=== PATIENT | female | born 1985 | race Caucasian/White ===

== ENCOUNTER 2023-02-16 15:54 | Outpatient (AMB) | payer OTHER, SELFPAY ==
--- NOTE | 2023-02-16 16:06 | MHC.OFFWIV ---
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 Patient reports the symptoms started approximately 4-5 days ago. 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 She has tested negative for COVID several times. She has a history of strep and bronchitis but states this does not feel like either. She denies current sore throat, chest pain, nausea, vomiting, diarrhea or fevers. Patient states that she stayed home sick from work today and slept the entire day. [facility] Social History Patient Tobacco Use Status: Never used Tobacco Review of Systems Const All systems reviewed & are unremarkable except as noted in HPI and below Physical Exam Vital Signs: Last Vital Signs Temp 97.5 F 02/16/23 16:12 Pulse 61 02/16/23 16:12 BP 112/70 02/16/23 16:12 Pulse Ox 98 02/16/23 16:12 Oxygen Delivery Method Room Air 02/16/23 16:12 BMI result Body Mass Index 28.9 General: awake, alert, oriented. Answers questions appropriately. Fully engaged in examination. Skin: warm, dry, intact HEENT: Normocephalic. Hearing intact. TMs intact bilaterally. posterior pharynx without erythema or exudate. no lymphadenopathy noted. Cardiac: External chest normal in appearance. Respiratory: No cough, audible wheezing or stridor. LS clear to auscultation bilaterally Abdomen: without gross distension. MS: No obvious swelling or deformities. Neurological: Oriented to person, place, time and situation. Thought process intact. Psychiatric: Appropriate mood and affect. Good judgment and insight. Assessment & Plan Assessment & Plan (1) URI (upper respiratory infection): Code(s): J06.9 - Acute upper respiratory infection, unspecified Plan Patient presented to the walk in clinic today for complaints of cough, congestion and fatigue. Benzonate 100mg po BID prn cough Rest, push fluids, tylenol/motrin as needed Excuse note for work provided Covid/Flu/RSV test pending, patient aware she will get a call tomorrow with the results. Follow up with pcp or in the clinic for any new or worsening symptoms. Orders: Orders SARS-CoV2/FLU/RSV 02/17/23 J06.9 - Acute upper respiratory infection, unspecified Medications: New benzonatate 100 mg PO BID PRN 30 caps 0RF cough Coding Level of Care Code New Pt Level 4 (81177) Diagnoses URI (upper respiratory infection) J06.9
[2023-02-16 16:12] VITALS: BP 112/70; PULSE 61; TEMP 36.4; O2SAT 98; BMI 28.9
== END 2023-02-16 16:45 | disposition home or self-care (01) ==
PROVIDERS: PCP Internal Medicine; Visit Provider Registered Nurse Emergency
DX: J06.9 Acute upper respiratory infection, unspecified (principal)
CPT/HCPCS: 99203

== ENCOUNTER 2023-02-16 16:27 | Outpatient (REF) | payer OTHER, SELFPAY ==
[2023-02-17 13:05] LABS: Influenza A PCR NEGATIVE (Negative); Influenza B PCR NEGATIVE (Negative); Resp Syncy Virus RNA Qual PCR POSITIVE (Negative); SARS COV2 PCR INHOUSE NEGATIVE (Negative)
== END 2023-02-16 16:28 | disposition home or self-care (01) ==
LOC: HO.LAB 16:27
PROVIDERS: Visit Provider Registered Nurse Emergency
DX: Z11.52 Encounter for screening for COVID-19 (principal); J06.9 Acute upper respiratory infection, unspecified
CPT/HCPCS: 0241U